=== PATIENT | male | born 1940 | race Caucasian/White ===

== ENCOUNTER 2019-07-02 | Emergency (ER) | payer MEDICARE ==
[~2019-07-02] MED LIST: ASPIRIN EC81 MG PO; BENICAR20 MG PO; CLINDAMYCIN300 M1 PO; DIABETA5 MG PO; DIGOXIN0.125 MG PO; FOSINOPRIL20 MG OR; LAMICTAL100 M1 PO; METFORMIN500 MG PO; METO50TA52 OR; OMEPRAZOLE20 MG OR; ZETIA10 MG OR
[2019-07-02 03:43] LABS: HEMATOCRIT 42.5 % (39.0-50.0); HEMOGLOBIN 14.4 g/dl (14.0-18.0); IMMATURE GRANULOCYTES 0.4 % (0.0-5.0); MEAN CELL VOLUME 86.6 fL CALC (80.0-100.0); MEAN CORPUSCULAR HGB 29.3 pG CALC (26.0-32.0); MEAN CORPUSCULAR HGB CONC 33.9 g/dL CAL (32.0-36.0); NEUT# 5.87 thou/uL (1.82-7.42); RED BLOOD COUNT 4.91 mill/uL (4.70-6.10)
[2019-07-02 03:54] LABS: ACT PARTIAL THROMBO TIME 23.6 SECONDS (20.0-32.5); ALKALINE PHOSPHATASE 95 u/l (38-126); AMYLASE 56 u/l (30-110); ANION GAP 10 (6-22 (CALC)); BUN 13 mg/dL (8-23); BUN/CREATININE RATIO 14 (12-20 (CALC)); CARBON DIOXIDE 27 mmol/l (22-30); CHLORIDE 103 mmol/l (95-108); CREATININE 0.9 mg/dL (0.7-1.3); D-DIMER 0.83 mg/L (0.19-0.60); GFR > 60 ML/MIN (>=60 (CALC)); GFR FOR AFR.AMER. > 60 ML/MIN (>=60 (CALC)); INTERNATIONAL NORMALIZED RATIO 0.9 RATIO (0.7-1.3); LIPASE 233 u/l (23-300); POTASSIUM 4.2 mmol/l (3.5-5.1); PROTHROMBIN TIME 9.5 SECONDS (9.0-12.5); SGOT/AST 22 u/l (19-48); SODIUM 136 mmol/l (137-146); TOTAL PROTEIN 6.6 g/dL (6.3-8.2)
[2019-07-02 04:01] LABS: BILIRUBIN, TOTAL 0.6 mg/dL (0.0-1.4)
[2019-07-02 04:05] LABS: MYOGLOBIN 31 ng/mL (0 - 121)
[2019-07-02] MEDS ORDERED: GLYBURIDE1.25 MG PO (04:37)
[2019-07-02] MEDS ORDERED: TRULICITY0.75 MG/0. IM (04:38)
[2019-07-02] MEDS ORDERED: MAGNESIUM200 M1 (04:39)
[2019-07-03] MEDS ORDERED: BENICAR40 MG PO (22:45)
[2019-07-03] MEDS ORDERED: DIFLUCAN100 M1 PO (22:45)
== END 2019-07-02 09:40 | disposition home or self-care (01) ==
PROVIDERS: Family Medicine
DX: R07.9 Chest pain, unspecified (principal); I10 Essential (primary) hypertension; E11.9 Type 2 diabetes mellitus without complications; Z79.84 Long term (current) use of oral hypoglycemic drugs; R11.0 Nausea; R06.02 Shortness of breath
CPT/HCPCS: Q9967

== ENCOUNTER 2019-07-03 | Emergency (ER) | payer MEDICARE ==
[~2019-07-03] MED LIST changes: +GLYBURIDE1.25 MG PO; +MAGNESIUM200 M1; +TRULICITY0.75 MG/0. IM
[2019-07-03 21:52] LABS: HEMATOCRIT 40.6 % (39.0-50.0); HEMOGLOBIN 13.3 g/dl (14.0-18.0); IMMATURE GRANULOCYTES 0.5 % (0.0-5.0); MEAN CELL VOLUME 88.1 fL CALC (80.0-100.0); MEAN CORPUSCULAR HGB 28.9 pG CALC (26.0-32.0); MEAN CORPUSCULAR HGB CONC 32.8 g/dL CAL (32.0-36.0); NEUT# 4.33 thou/uL (1.82-7.42); RED BLOOD COUNT 4.61 mill/uL (4.70-6.10)
[2019-07-03 22:05] LABS: ALBUMIN 3.8 g/dL (3.2-5.0); ALKALINE PHOSPHATASE 93 u/l (38-126); ANION GAP 12 (6-22 (CALC)); BUN 15 mg/dL (8-23); BUN/CREATININE RATIO 16 (12-20 (CALC)); CARBON DIOXIDE 24 mmol/l (22-30); CHLORIDE 104 mmol/l (95-108); GFR > 60 ML/MIN (>=60 (CALC)); GFR FOR AFR.AMER. > 60 ML/MIN (>=60 (CALC)); POTASSIUM 4.4 mmol/l (3.5-5.1); SGOT/AST 21 u/l (19-48); SODIUM 135 mmol/l (137-146); TOTAL PROTEIN 6.4 g/dL (6.3-8.2)
[2019-07-03 22:07] LABS: BILIRUBIN, TOTAL 0.3 mg/dL (0.0-1.4)
[2019-07-03 22:17] LABS: MYOGLOBIN 27 ng/mL (0 - 121)
[2019-07-03] MEDS ORDERED: BENICAR40 MG PO (22:45)
[2019-07-03] MEDS ORDERED: DIFLUCAN100 M1 PO (22:45)
== END 2019-07-03 23:29 | disposition home or self-care (01) ==
PROVIDERS: Family Medicine
DX: I10 Essential (primary) hypertension (principal); B37.0 Candidal stomatitis; E11.9 Type 2 diabetes mellitus without complications; Z79.84 Long term (current) use of oral hypoglycemic drugs